=== PATIENT | male | born 1960 | race Caucasian/White ===

== ENCOUNTER 2017-12-24 11:14 | Inpatient (IN) ==
[2017-12-24] MEDS ORDERED: 0.9 % Sodium Chloride 1,000 ML IVC ONE (11:16)
[2017-12-24] MEDS ORDERED: Isovue-370 500 ML INFUS..BTL IV ONE (11:28)
[2017-12-24] MEDS ORDERED: Pantoprazole 80 MG in 0.9 % Sodium Chloride 50 ML IVPB ONE (11:30)
--- NOTE | 2017-12-24 11:30 | Emergency Department Note ---
Disposition Clinical Impression: GI bleed Qualifiers: GI bleed type/associated pathology: unspecified gastrointestinal hemorrhage type Qualified Code(s): K92.2 - Gastrointestinal hemorrhage, unspecified Disposition: Admitted As Inpatient Condition: Undetermined GI Bleed HPI - General Chief complaint: ED GI Bleed Stated complaint: GI bleed Time Seen by Provider: 12/24/17 11:15 Source: EMS Mode of arrival: EMS Limitations: no limitations Nursing Notes Reviewed: Yes Vital Signs Reviewed: Yes - History of Present Illness HPI Narrative: 57-year-old male history of chronic alcohol abuse who presents to the ER with a complaint of throwing up blood and bloody bowel movements. Reports symptoms started yesterday. He states he had what episode of dark blood in his vomit. He then had roughly half a dozen bloody bowel movements throughout the evening. He states they were both light and dark intermittently. He states this happened once before about a year ago. He had a colonoscopy 5 years ago that was normal. He is not on any antiplatelet or anticoagulation medications. He endorses some lower abdominal pain. No prior abdominal surgical history. No history of esophageal banding for varices. He was seen at the [facility] where they checked labs, rectal exam which was grossly positive for blood and transferred him here for further evaluation. Pt Subjective Complaint: coffee ground emesis, melena, gross hematochezia Onset (ago): day(s) Consistency: intermittent Improves with: nothing Worsens with: nothing Context: history of GI bleed, alcohol abuse Associated symptoms: Reports: abdominal pain, vomiting. Denies: nausea, fever Treatments Prior to Arrival: none - Related Data Home Medications Medication Instructions Recorded Confirmed Baclofen [Lioresal] 10 mg PO TID 12/24/17 12/24/17 Buprenorphine [Butrans] 10 mcg TD QWEEK 12/24/17 12/24/17 Cholecalciferol (D-3) [Vitamin D] 1,000 unit PO DAILY 12/24/17 12/24/17 DULoxetine [Cymbalta] 60 mg PO DAILY 12/24/17 12/24/17 Diclofenac Sodium [Voltaren] 2 gm TP QID 12/24/17 12/24/17 Folic Acid 1 mg PO DAILY 12/24/17 12/24/17 Gabapentin [Neurontin] 300 mg PO TID 12/24/17 12/24/17 Lisinopril-HCTZ 20-12.5 [Prinzide 2 tab PO DAILY 12/24/17 12/24/17 20-12.5] Melatonin [Melatin] 3 mg PO HS 12/24/17 12/24/17 Multivit-Min/FA/Lycopen/Lutein [A 1 tab PO DAILY 12/24/17 12/24/17 Thru Z Select Multivit Tab] Naproxen [Naprosyn] 500 mg PO BID 12/24/17 12/24/17 Claridge-3/Dha/Epa/Fish Oil [Fish Oil 1 cap PO BID 12/24/17 12/24/17 1,000 mg Softgel] Sennosides [Senna] 17.2 mg PO DAILY PRN 12/24/17 12/24/17 Sildenafil Citrate [Viagra] 50 mg PO DAILY PRN 12/24/17 12/24/17 Tramadol HCl [Ultram] 50 mg PO TID PRN 12/24/17 12/24/17 Trazodone HCl 100 mg PO HS 12/24/17 12/24/17 Allergies Allergy/AdvReac Type Severity Reaction Status Date / Time No Known Allergies Allergy Verified 06/29/16 01:59 All systems ED: reviewed and negative except as stated. Constitutional: Denies: fever Gastrointestinal: Reports: abdominal pain, vomiting, hematemesis, melena, hematochezia. Denies: nausea, diarrhea Past Medical History - Past Medical History Attestation: Yes The following information was validated with the patient. Source: patient Medical history: Reports: arthritis, hypertension Psychiatric history: Reports: no psych history - Social History Smoking Status: Current every day smoker Smokeless Tobacco Status: No Alcohol use: Reports: heavy Drug use: Reports: marijuana Physical Exam - General Limitations: no limitations General appearance: alert, in no apparent distress - Head Head exam: atraumatic, normocephalic - Eye Eye exam: Present: normal appearance - ENT ENT exam: normal exam - Neck Neck exam: Present: normal inspection - Chest Chest inspection: Present: normal inspection, symmetric chest wall rise - Respiratory Respiratory exam: Present: normal lung sounds bilaterally - Cardiovascular Cardiovascular exam: Present: regular rate, normal rhythm, normal heart sounds - Abdominal Exam Abdominal exam: Present: soft, tenderness (Moderate lower abdominal tenderness) . Absent: distention, guarding, rigidity - Extremities Exam Extremities exam: Present: normal inspection, full ROM - Expanded Upper Extremity Exam Shoulder exam: Present: normal inspection, full ROM Arm exam: Present: normal inspection, full ROM Elbow exam: Present: normal inspection, full ROM Forearm/Wrist exam: Present: normal inspection, full ROM Hand exam: Present: normal inspection, full ROM - Expanded Lower Extremity Exam Hip/Pelvis exam: Present: normal inspection, full ROM Upper leg exam: Present: normal inspection, full ROM Knee exam: Present: normal inspection, full ROM Lower leg exam: Present: normal inspection, full ROM Ankle exam: Present: normal inspection, full ROM Foot/toe exam: Present: normal inspection, full ROM - Skin Skin exam: Present: warm, dry Course Course Narrative: Patient seen and examined. Vital signs reviewed. Plan for CT imaging, labs, type and screen, Protonix bolus and drip, discussion with endoscopy and admission for further management. - Consultations Consultation #1: I spoke with the on-call endoscopist Dr. Oneill. Discussed the patient's history exam labs and imaging as well as interventions. He asked if there was evidence of cirrhosis and his report. There is no mention of cirrhosis on the radiology read however they do, with duodenitis. Agrees to see the patient in consultation. Consultation #2: I spoke again with the on-call endoscopist at the request of the hospitalist. He states that he does not do banding however he reviewed the CT scan and does not see esophageal varices no more duodenitis. I was calling on behalf of the hospitalist to assure that he felt comfortable managing the patient endoscopically. Vital Signs Temperature 98.8 F 12/24/17 11:19 Pulse Rate 88 12/24/17 11:19 Respiratory Rate 15 12/24/17 11:19 Blood Pressure 148/75 12/24/17 11:19 O2 Sat by Pulse Oximetry 100 12/24/17 11:19 Temperature 99.3 F 12/24/17 15:36 Pulse Rate 87 12/24/17 15:36 Respiratory Rate 16 12/24/17 15:36 Blood Pressure 166/71 12/24/17 15:36 O2 Sat by Pulse Oximetry 96 12/24/17 15:36 Oxygen Delivery Oxygen Delivery Room Air GI Bleed - MDM Narrative Medical decision making narrative: 57-year-old male with upper and lower GI bleed. History of alcohol abuse. Noted to have a hemoglobin of 9.7 today. INR and platelets normal. Hemodynamically stable. CT with evidence of duodenitis. Endoscopy consulted. Admitted to the hospitalist service in stable condition. - Lab Data Lab results reviewed: Yes I reviewed the patient's lab results. Result diagrams: 12/24/17 17:02 12/24/17 11:50 Lab Results 12/24/17 12/24/17 12/24/17 Range/Units 11:50 11:50 11:50 WBC 13.2 H (4.3-11.1) K/mcL RBC 2.77 L (4.19-5.50) M/mcL Hgb 9.7 L (12.9-16.9) g/dL Hct 27.1 L (37.5-50.1) % MCV 97.8 (83.0-100.0) fL MCH 35.0 H (28.0-33.3) pg MCHC 35.8 H (31.6-35.5) g/dL RDW 13.5 (11.5-14.5) % Plt Count 165 (140-400) K/mcL MPV 9.6 (9.4-12.4) fL Immature Gran % 0.4 (0-4) % Seg Neutrophils % 65.5 % Lymphocytes % 21.2 % Monocytes % 12.5 % Eosinophils % 0.1 % Basophils % 0.3 % Neutrophils # 8.6 (1.6-8.9) K/mcL Lymphocytes # 2.8 (0.6-4.6) K/mcL Monocytes # 1.7 H (0.0-1.3) K/mcL Eosinophils # 0.0 (0.0-0.6) K/mcL Basophils # 0.0 (0.0-0.2) K/mcL Nucleated RBCs/100 WBC 0.3 H (0) /100 WBC PT 13.0 H (9.4-12.1) Seconds INR 1.2 APTT 27.9 (26.0-36.0) Seconds Sodium 134 L (136-145) mEq/L Potassium 4.4 (3.5-5.1) mEq/L Chloride 98 (98-107) mEq/L Carbon Dioxide 28 (23-29) mEq/L BUN 63 H (6-20) mg/dL Creatinine 1.23 (0.70-1.30) mg/dL Est GFR ( Amer) > 60 (> 60) Est GFR (Non-Af Amer) > 60 (> 60) BUN/Creatinine Ratio 51 H (6-26) Glucose 131 H (70-105) mg/dL Calculated Osmolality 298 (280-300) Calcium 9.4 (8.6-10.3) mg/dL Total Bilirubin 0.7 (0.3-1.0) mg/dL AST 38 (13-39) Units/L ALT 34 (7-52) Units/L Alkaline Phosphatase 46 (34-104) Units/L Troponin I < 0.03 (< 0.04) ng/mL Serum Total Protein 6.6 (6.4-8.9) g/dL Albumin 3.7 (3.5-5.7) g/dL Globulin 2.9 (2.4-3.5) g/dL Albumin/Globulin Ratio 1.3 (1.1-2.2) Amylase 44 (29-103) Units/L Lipase 10 L (11-82) Units/L Blood Type Antibody Screen 12/24/17 Range/Units 11:50 WBC (4.3-11.1) K/mcL RBC (4.19-5.50) M/mcL Hgb (12.9-16.9) g/dL Hct (37.5-50.1) % MCV (83.0-100.0) fL MCH (28.0-33.3) pg MCHC (31.6-35.5) g/dL RDW (11.5-14.5) % Plt Count (140-400) K/mcL MPV (9.4-12.4) fL Immature Gran % (0-4) % Seg Neutrophils % % Lymphocytes % % Monocytes % % Eosinophils % % Basophils % % Neutrophils # (1.6-8.9) K/mcL Lymphocytes # (0.6-4.6) K/mcL Monocytes # (0.0-1.3) K/mcL Eosinophils # (0.0-0.6) K/mcL Basophils # (0.0-0.2) K/mcL Nucleated RBCs/100 WBC (0) /100 WBC PT (9.4-12.1) Seconds INR APTT (26.0-36.0) Seconds Sodium (136-145) mEq/L Potassium (3.5-5.1) mEq/L Chloride (98-107) mEq/L Carbon Dioxide (23-29) mEq/L BUN (6-20) mg/dL Creatinine (0.70-1.30) mg/dL Est GFR ( Amer) (> 60) Est GFR (Non-Af Amer) (> 60) BUN/Creatinine Ratio (6-26) Glucose (70-105) mg/dL Calculated Osmolality (280-300) Calcium (8.6-10.3) mg/dL Total Bilirubin (0.3-1.0) mg/dL AST (13-39) Units/L ALT (7-52) Units/L Alkaline Phosphatase (34-104) Units/L Troponin I (< 0.04) ng/mL Serum Total Protein (6.4-8.9) g/dL Albumin (3.5-5.7) g/dL Globulin (2.4-3.5) g/dL Albumin/Globulin Ratio (1.1-2.2) Amylase (29-103) Units/L Lipase (11-82) Units/L Blood Type O POSITIVE Antibody Screen NEGATIVE - Radiology Data Radiology results reviewed: Yes I reviewed the patient's radiology results. Abdomen/Pelvis CT 12/24/17 11:28 IMPRESSION: Suspect nonspecific duodenitis with reactive upper abdominal lymph nodes D/ / Mick Curtis MD / Mick Curtis MD Interpreting Provider: Mick Curtis MD - EKG Data EKG attestation: Yes I reviewed and interpreted this EKG. EKG results narrative: EKG demonstrates sinus rhythm with rate of 87 bpm. Normal axis. Normal intervals. Normal R-wave progression. No gross ST elevations or depressions. No acute ischemic findings. Critical Care Time Critical Care Time: Yes Total Critical Care Time: 35 Attestation: Critical care time 35 minutes managing patient's Shibley. S.B.A.R. - S.B.A.R. Situation: Demographics, MOA Background: Presenting Complaint, Relevant PMH, Meds, & Allergies Assessment: Vital Signs, Course and respsone to treatment, Exam Concerns, Patient/Family Expectation, Pertinant Lab Results Recommendation: Barrier(s) to disposition, Recommendation based on pending studies, treatments, or consults S.B.A.R. Report Given to: Dr. Lamb Attestation Statement - Attestation Attestation: Patient was seen with resident physician. I reviewed the history, physical, assessment and plan, and agree with the findings. I also personally evaluated this patient and had [id number] time with this patient. 57-year-old male presents emergency department GI bleed. Patient has a history of same. Patient acknowledges that he is an alcoholic. Patient states that he has had coffee-ground emesis as well as dark melena stools for the last couple of days. He says it was really bad yesterday could not stop throwing up. He said some abdominal cramping but no other abdominal pain. No fevers or chills. No chest pain or shortness of breath. Review systems as above remainder negative. Physical exam vital signs were stable. ENT is unremarkable. Heart regular rhythm and rate. Lungs clear. Abdomen soft nontender. Extremities unremarkable. Neurologically intact. Skin no rashes. Psych anxious. ED course patient will be started with 2 large-bore IVs. Protonix drip. Full lab testing. And then we will contact endoscopy as well as hospitalist service for admission. His hemoglobin has dropped since his last tests which was 14 today was 9. He did not receive blood products while in the emergency department. He did not have episodes of emesis while here. He was admitted to the hospitalist service with endoscopy consultation. Hemodynamically his vital signs remained stable at time of transfer to the hospital area Critical care time 35 minutes.
[2017-12-24 12:06] LABS: Basophils % 0.3 %; Eosinophils % 0.1 %; Hematocrit 27.1 % (37.5-50.1); Hemoglobin 9.7 g/dL (12.9-16.9); Immature Granulocytes % 0.4 % (0-4); Lymphocytes # 2.8 K/mcL (0.6-4.6); Lymphocytes % 21.2 %; Mean Corpuscular HGB Conc 35.8 g/dL (31.6-35.5); Mean Corpuscular Volume 97.8 fL (83.0-100.0); Mean Platelet Volume 9.6 fL (9.4-12.4); Monocytes # 1.7 K/mcL (0.0-1.3); Monocytes % 12.5 %; Neutrophils # 8.6 K/mcL (1.6-8.9); Nucleated Red Blood Cells 0.3 /100 WBC (0); Platelet Count 165 K/mcL (140-400); Red Blood Count 2.77 M/mcL (4.19-5.50); Red Cell Distribution Width 13.5 % (11.5-14.5); Segmented Neutrophils % 65.5 %
[2017-12-24] MEDS: Pantoprazole 40 MG in 0.9 % Sodium Chloride Mini Bag 100 ML IVC SCH ×3 (12:08→23:50)
[2017-12-24 12:13] LABS: INR 1.2
[2017-12-24 12:16] LABS: Activated Partial Thrombo Time 27.9 Seconds (26.0-36.0)
[2017-12-24 12:23] LABS: Troponin I < 0.03 ng/mL (< 0.04)
[2017-12-24 12:24] LABS: Alanine Aminotransferase 34 Units/L (7-52); Albumin 3.7 g/dL (3.5-5.7); Albumin/Globulin Ratio 1.3 (1.1-2.2); Alkaline Phosphatase 46 Units/L (34-104); Aspartate Amino Transferase 38 Units/L (13-39); BUN/Creatinine Ratio 51 (6-26); Bilirubin,Total 0.7 mg/dL (0.3-1.0); Blood Urea Nitrogen 63 mg/dL (6-20); Calcium 9.4 mg/dL (8.6-10.3); Carbon Dioxide 28 mEq/L (23-29); Chloride 98 mEq/L (98-107); Globulin 2.9 g/dL (2.4-3.5); Glucose 131 mg/dL (70-105); Osmolality,Calculated 298 (280-300); Potassium 4.4 mEq/L (3.5-5.1); Sodium 134 mEq/L (136-145); Total Protein 6.6 g/dL (6.4-8.9); eGFR For Non-African Americans > 60 (> 60)
[2017-12-24] MEDS ORDERED: Naloxone 0.4 MG/ML INJ IVP PRN (14:40)
--- NOTE | 2017-12-24 14:52 | General Surgery Consult Note ---
<Jason Aiken W - Last Filed: 12/24/17 15:41> Date of Encounter: 12/24/17 Time of Encounter: 14:49 Assessment and Plan (1) GI bleed Current Visit: Yes Status: Acute Patient has had multiple episodes of coffee-ground emesis and melena CT scan (impression below) showed duodenitis Appears hemodynamically stable at this time EGD recommended within the next 24-72 hours IV Protonix, Carafate, and Zosyn recommended IV fluids transfusions if needed per primary Follow H&H and labs IMPRESSION: Suspect nonspecific duodenitis with reactive upper abdominal lymph nodes History of Present Illness Consult date: 12/24/17 Reason for consult: other (GI bleed) Requesting physician: Jagdish Claire History of present illness: Mr. Alvarez is a 57-year-old male with a past medical history of ETOH abuse, low back pain (on Naproxen) who presents to the emergency department for coffee- ground emesis and melena. Patient states this started yesterday around noon when he suddenly had the urge to vomit. He said he had a large vomit that came on very quickly It was mostly dark blood stated it looked like coffee grounds. 15 minutes after this he said he had the urge to go to the bathroom. He had a large bowel movement code mostly dark blood but had some bright red blood as well. Since then he has vomited 6-8 times and had bloody bowel movements about 6 times. After this he decided to go to the emergency room. States he has abdominal pain in his lower quadrants the pain does not radiate and is constant and dull. He is not taken anything to make this better. Patient states he felt lightheaded and slightly weak but did not pass out. Patient on several medications including lisinopril hydrochlorothiazide, gabapentin, naproxen 500 mg twice a day, and pain medications. Colonoscopy 5 years ago and was normal. Never experienced this before. No abdominal surgical history. Past Med Surg Social Fam HX - Past Medical History Medical history: arthritis, hypertension Additional medical history: ETOH abuse Psychiatric history: no psych history - Past Surgical History Additional surgical history: knee surgery - Social History Smoking Status: Current every day smoker Smokeless Tobacco Status: No Alcohol use: heavy Drug use: marijuana Medications and Allergies Baclofen [Lioresal] 10 mg PO TID 12/24/17 [History] Buprenorphine [Butrans] 10 mcg TD QWEEK 12/24/17 [History] Cholecalciferol (D-3) [Vitamin D] 1,000 unit PO DAILY 12/24/17 [History] DULoxetine [Cymbalta] 60 mg PO DAILY 12/24/17 [History] Diclofenac Sodium [Voltaren] 2 gm TP QID 12/24/17 [History] Folic Acid 1 mg PO DAILY 12/24/17 [History] Gabapentin [Neurontin] 300 mg PO TID 12/24/17 [History] Lisinopril-HCTZ 20-12.5 [Prinzide 20-12.5] 2 tab PO DAILY 12/24/17 [History] Melatonin [Melatin] 3 mg PO HS 12/24/17 [History] Multivit-Min/FA/Lycopen/Lutein [A Thru Z Select Multivit Tab] 1 tab PO DAILY [History] Naproxen [Naprosyn] 500 mg PO BID 12/24/17 [History] Nash-3/Dha/Epa/Fish Oil [Fish Oil 1,000 mg Softgel] 1 cap PO BID 12/24/17 [ History] Sennosides [Senna] 17.2 mg PO DAILY PRN 12/24/17 [History] Sildenafil Citrate [Viagra] 50 mg PO DAILY PRN 12/24/17 [History] Tramadol HCl [Ultram] 50 mg PO TID PRN 12/24/17 [History] Trazodone HCl 100 mg PO HS 12/24/17 [History] 3 Allergy/AdvReac Type Severity Reaction Status Date / Time No Known Allergies Allergy Verified 06/29/16 01:59 Review of Systems All systems PM: The remainder of the systems were reviewed and are negative - Constitutional fatigue, weakness, no increased appetite - EENT Nose, mouth and throat: dizziness - Cardiovascular no chest pain - Respiratory hemoptysis, no dyspnea on exertion - Gastrointestinal as per HPI - Musculoskeletal arthralgias, back pain, stiffness - Neurological no headache(s), no lack of coordination, no syncope General Surgery Exam Initial Vital Signs Temp Pulse Resp BP Pulse Ox 98.8 F 88 15 148/75 100 12/24/17 11:19 12/24/17 11:19 12/24/17 11:19 12/24/17 11:19 12/24/17 11:19 - General physical appearance well developed, well nourished, moderate distress, other (jittery on exam, tremor like) - Eyes PERRL, normal ocular movement - ENT atraumatic, normocephalic, CN 2-12 grossly intact - Respiratory normal expansion, normal respiratory effort, clear to auscultation - Cardiovascular Cardiovascular exam: Present: RRR, no murmurs/rubs/gallops - Abdomen Abdomen general surgery: Present: bowel sounds present, soft Abdominal Tenderness: Present: epigastic, RLQ, LLQ - Integumentary Integumentary general surgery: Present: warm and dry, no abnormal pigmentation - Neurologic Present: CN 2-12 grossly intact, normal coordination, normal sensation - Musculoskeletal Present: normal posture - Psychiatric Psychiatric general surgery: Present: appropriate, speech is normal, memory intact Exam Initial Vital Signs Temp Pulse Resp BP Pulse Ox 98.8 F 88 15 148/75 100 12/24/17 11:19 12/24/17 11:19 12/24/17 11:19 12/24/17 11:19 12/24/17 11:19 Results - Labs 12/24/17 11:50 12/24/17 11:50 Abnormal lab results WBC 13.2 K/mcL (4.3-11.1) H 12/24/17 11:50 RBC 2.77 M/mcL (4.19-5.50) L 12/24/17 11:50 Hgb 9.7 g/dL (12.9-16.9) L 12/24/17 11:50 Hct 27.1 % (37.5-50.1) L 12/24/17 11:50 MCH 35.0 pg (28.0-33.3) H 12/24/17 11:50 MCHC 35.8 g/dL (31.6-35.5) H 12/24/17 11:50 Monocytes # 1.7 K/mcL (0.0-1.3) H 12/24/17 11:50 Nucleated RBCs/100 WBC 0.3 /100 WBC (0) H 12/24/17 11:50 PT 13.0 Seconds (9.4-12.1) H 12/24/17 11:50 Sodium 134 mEq/L (136-145) L 12/24/17 11:50 BUN 63 mg/dL (6-20) H 12/24/17 11:50 BUN/Creatinine Ratio 51 (6-26) H 12/24/17 11:50 Glucose 131 mg/dL (70-105) H 12/24/17 11:50 All other labs normal. Consult Discharge Plan - Plan [facility] Care Provider[facility] - <Nelson Oneill - Last Filed: 12/24/17 17:55> Date of Encounter: 12/24/17 Review of Systems All systems PM: The remainder of the systems were reviewed and are negative General Surgery Exam Initial Vital Signs Temp Pulse Resp BP Pulse Ox 98.8 F 88 15 148/75 100 12/24/17 11:19 12/24/17 11:19 12/24/17 11:19 12/24/17 11:19 12/24/17 11:19 Exam Initial Vital Signs Temp Pulse Resp BP Pulse Ox 98.8 F 88 15 148/75 100 12/24/17 11:19 12/24/17 11:19 12/24/17 11:19 12/24/17 11:19 12/24/17 11:19 Results - Labs 12/24/17 17:02 12/24/17 11:50 Abnormal lab results WBC 13.2 K/mcL (4.3-11.1) H 12/24/17 11:50 RBC 2.77 M/mcL (4.19-5.50) L 12/24/17 11:50 Hgb 9.0 g/dL (12.9-16.9) L 12/24/17 17:02 Hct 25.5 % (37.5-50.1) L 12/24/17 17:02 MCH 35.0 pg (28.0-33.3) H 12/24/17 11:50 MCHC 35.8 g/dL (31.6-35.5) H 12/24/17 11:50 Monocytes # 1.7 K/mcL (0.0-1.3) H 12/24/17 11:50 Nucleated RBCs/100 WBC 0.3 /100 WBC (0) H 12/24/17 11:50 PT 13.0 Seconds (9.4-12.1) H 12/24/17 11:50 Sodium 134 mEq/L (136-145) L 12/24/17 11:50 BUN 63 mg/dL (6-20) H 12/24/17 11:50 BUN/Creatinine Ratio 51 (6-26) H 12/24/17 11:50 Glucose 131 mg/dL (70-105) H 12/24/17 11:50 Lipase 10 Units/L (11-82) L 12/24/17 11:50 All other labs normal. - Attending Attestation I examined this patient and my medical decision-making was reviewed with the Resident Physician. I agree with the documented findings, disposition and treatment plan as described except to the extent set forth below. I reviewed the above assessment and evaluation and agree with the above plan. Patient started having episodes of a metastasis with coffee-ground emesis and dark stool. He stated that he has been having some lower abdominal pain symptoms and has never had hematemesis in the past. His previous colonoscopy but denies ever having had an EGD. He has been taking Naprosyn for pain at least twice a day. He admits to alcohol history as well. I personally reviewed the CT scan images and report which shows evidence of duodenitis. His upper GI bleed is likely secondary to duodenitis versus an ulcer. Agree with antibiotics and starting of IV Protonix and Carafate. Agree with checking H&H. We will follow with you.
[2017-12-24] MEDS ORDERED: *HR* LORazepam 2 MG/ML VIAL IVP PRN ×3 (14:53)
--- NOTE | 2017-12-24 14:58 | Internal Med History&Physical ---
<Elva Roegrs Thomas - Last Filed: 12/24/17 16:03> Date of Encounter: 12/24/17 Time of Encounter: 14:57 Internal Medicine - H&P: HPI Chief complaint: GI bleed Admitted From: Hospital to Hospital Transfer (From [place]) Plans for Post Hospital Care: Home History of present illness: Mr. Santamaria is a 57 year old male with history of alcohol abuse, GI bleeding, arthritis, HTN, and daily smoker. Here from the [place] with reports of coffee ground emesis, melena. He reported the stool color as bright red to me. The patient indicated that he has a history of GI bleed about 1 year ago. He also indicated that he had a colonoscopy about 5 years ago. The patient hgb is currently 9.7, baseline is around 14. The patient bun elevated at 63. The creat is 1.23. The patient was started o a protonix drip after results of abdominal CT : Suspect nonspecific duodenitis with reactive upper abdominal lymph nodes. Surgery was consulted per the ED. Plan is to scope the patient tomorrow. History of alcohol abuse. He indicated that he typically drinks 4-5 beers per day, his last drink was this past . Patient appeared very anxious and asked for a drink of water 3 times while I was in the room. Patient is currently npo. On CIWA scale. He could start withdrawal, as it has been 3 days since consuming alcohol. Patient denied chest pain however states he has shortness of breath at times,likely related to the anemia. O2 sat is 96% at this time. Past Med Surg Social Fam HX - Past Medical History Medical history: arthritis, hypertension Additional medical history: ETOH abuse Psychiatric history: no psych history - Past Surgical History Additional surgical history: knee surgery - Social History Smoking Status: Current every day smoker Smokeless Tobacco Status: No Alcohol use: heavy Drug use: marijuana Internal Medicine - H&P: Meds Baclofen [Lioresal] 10 mg PO TID 12/24/17 [History] Buprenorphine [Butrans] 10 mcg TD QWEEK 12/24/17 [History] Cholecalciferol (D-3) [Vitamin D] 1,000 unit PO DAILY 12/24/17 [History] DULoxetine [Cymbalta] 60 mg PO DAILY 12/24/17 [History] Diclofenac Sodium [Voltaren] 2 gm TP QID 12/24/17 [History] Folic Acid 1 mg PO DAILY 12/24/17 [History] Gabapentin [Neurontin] 300 mg PO TID 12/24/17 [History] Lisinopril-HCTZ 20-12.5 [Prinzide 20-12.5] 2 tab PO DAILY 12/24/17 [History] Melatonin [Melatin] 3 mg PO HS 12/24/17 [History] Multivit-Min/FA/Lycopen/Lutein [A Thru Z Select Multivit Tab] 1 tab PO DAILY [History] Naproxen [Naprosyn] 500 mg PO BID 12/24/17 [History] [place]-3/Dha/Epa/Fish Oil [Fish Oil 1,000 mg Softgel] 1 cap PO BID 12/24/17 [ History] Sennosides [Senna] 17.2 mg PO DAILY PRN 12/24/17 [History] Sildenafil Citrate [Viagra] 50 mg PO DAILY PRN 12/24/17 [History] Tramadol HCl [Ultram] 50 mg PO TID PRN 12/24/17 [History] Trazodone HCl 100 mg PO HS 12/24/17 [History] 3 Allergy/AdvReac Type Severity Reaction Status Date / Time No Known Allergies Allergy Verified 06/29/16 01:59 All Systems PM: A 10-system review of systems was performed and is negative for pertinent findings except as documented above in the HPI. - Constitutional Constitutional: no chills, no fever(s), no night sweats - EENT Eyes: no change in vision, no discharge, no pain, no photophobia Ears: no ear discharge, no ear pain, no tinnitus Nose, mouth and throat: no dysphagia, no nasal discharge, no neck pain, no sore throat - Cardiovascular Cardiovascular ROS IM: no chest pain, no diaphoresis, no dyspnea, no lightheadedness, no palpitations, no syncope - Respiratory Respiratory: no cough, no dyspnea, no wheezing, no excessive phlegm production - Gastrointestinal Gastrointestinal: abdominal pain (Associated with nausea), hematemesis, hematochezia, melena, nausea, no diarrhea, no vomiting - Musculoskeletal Musculoskeletal ROS IM: no numbness, no tingling - Integumentary Integumentary IM: no rash, no unusual bruising - Neurological Neurological ROS: no confusion, no convulsions, no focal weakness, no numbness, no tingling, no tremor(s) - Psychiatric Psychiatric: anxiety, other (Tremors, likely related to alcohol withdrawl ) - Hematologic/Lymphatic Hematologic/Lymphatic: no easy bruising - Constitutional Vitals: Temp Pulse Resp BP Pulse Ox 98.8 F 80 15 128/68 97 12/24/17 11:19 12/24/17 13:28 12/24/17 11:19 12/24/17 13:28 12/24/17 13:28 General appearance: Present: A&O X 3, answers questions appropriately - Head Head exam: Present: atraumatic, normocephalic - Eye Eye exam: Present: PERRL, conjuntiva pink, sclera anicteric Pupils: Present: PERRL - Neck Neck exam general surgery: Present: supple, trachea midline. Absent: lymphadenopathy - Respiratory Respiratory exam: Present: rhonchi (faint, ststes he currently smokes about 10 cigarettes per day. ). Absent: accessory muscle use, rales, wheezes - Cardiovascular Cardiovascular exam: Present: RRR, +S1, +S2. Absent: diastolic murmur, gallop, rubs, systolic murmur - GI/Abdominal GI/Abdominal exam: Present: normal bowel sounds, soft, no peritoneal signs. Absent: distended, tenderness - Extremities Exam Extremities exam: Present: warm, radial pulses palpable and symmetrical. Absent : calf tenderness, cyanotic, pedal edema - Neurological Exam Neurological exam: Present: CN II-XII intact, oriented X3, no focal deficits. Absent: pronater drift, facial droop, speech deficit - Skin Skin exam: Present: dry, intact Internal Med - H&P Results - Labs CBC & Chem 7: 12/24/17 11:50 12/24/17 11:50 - Assessment and plan (1) GI bleed Current Visit: Yes Status: Acute Assessment and plan: Protonix drip Surgery consulted H and H q 6h Type and screen, give PBRC's if hgb less than 7 NPO except ice chips Qualifiers: GI bleed type/associated pathology: unspecified gastrointestinal hemorrhage type Qualified Code(s): K92.2 - Gastrointestinal hemorrhage, unspecified (2) Alcohol dependence Current Visit: Yes Status: Acute Assessment and plan: CIWA Scale with lorazepam iv coverage Social service consult Cardiac monitoring Qualifiers: Substance use status: unspecified alcohol-induced disorder Qualified Code(s ): F10.29 - Alcohol dependence with unspecified alcohol-induced disorder (3) HTN (hypertension) Current Visit: Yes Status: Acute Assessment and plan: Bp is elevated/uncontrolled. Likely due to discomfort of nausea, and vomiting. Will continue home medications lisionpril/HCTZ. Qualifiers: Hypertension type: essential hypertension Qualified Code(s): I10 - Essential (primary) hypertension - Time Spent With Patient Total time spent is greater than 50% in coordination of care (as documented) at patient's floor/unit and/or counseling patient: 25 - 35 minutes <Brayan Lamb - Last Filed: 12/24/17 16:20> Date of Encounter: 12/24/17 Internal Medicine - H&P: HPI History of present illness: Mr. Santamaria is a 57 year old male All Systems PM: A 10-system review of systems was performed and is negative for pertinent findings except as documented above in the HPI. - Constitutional Vitals: Temp Pulse Resp BP Pulse Ox 99.3 F 87 16 166/71 96 12/24/17 15:36 12/24/17 15:36 12/24/17 15:36 12/24/17 15:36 12/24/17 15:36 Internal Med - H&P Results - Labs CBC & Chem 7: 12/24/17 11:50 12/24/17 11:50 - Attending Attestation I have seen and examined the patient with Elva Rogers and agree with his/her assessment and plan. 57-year-old male with history of alcohol abuse but no cirrhosis presented to the ED with a concern for upper bleeding GI tract. Hemoglobin was 9.7 and it was 14.4 about a year and a half ago. Otherwise he was afebrile and hemodynamically stable. Exam is unremarkable without significant epigastric tenderness. BMP which showed elevated BUN to creatinine ratio was also suggestive of upper BGIT. No coagulopathy or thrombocytopenia. CT scan finding suggested possible duodenitis as a cause. He was started on IV fluids and IV Protonix. He will be nothing by mouth, and will be for scope tomorrow per surgery. Last drink was on , will place on CIWA protocol to monitor for alcohol withdrawal. Brayan Lamb MD - Time Spent With Patient Total time spent is greater than 50% in coordination of care (as documented) at patient's floor/unit and/or counseling patient:
[2017-12-24] MEDS ORDERED: Ondansetron 4 MG/2 ML VIAL ONE (14:59)
[2017-12-24] MEDS ORDERED: Propofol 500 MG/50 ML INFUS..BTL ONE (15:07)
[2017-12-24 15:22] LABS: Amylase 44 Units/L (29-103); Lipase 10 Units/L (11-82)
[2017-12-24] MEDS ORDERED: *HR* LORazepam 2 MG/ML VIAL IVP ONE (15:44)
[2017-12-24] MEDS ORDERED: traMADol 50 MG TABLET PO PRN (15:53)
[2017-12-24] MEDS: 0.9 % Sodium Chloride 1,000 ML IVC SCH (16:57)
[2017-12-24 17:11] LABS: Hematocrit 25.5 % (37.5-50.1)
[2017-12-24] MEDS ORDERED: Thiamine (B-1) 100 MG, Folic Acid 1 MG, MVI, adult with vitamin K 10 ML in 0.9 % Sodi... IVPB SCH (18:00)
--- NOTE | 2017-12-24 18:00 | General Surgery Consult Note ---
Date of Encounter: 12/25/17 Time of Encounter: 17:56 Assessment and Plan (1) UGIB (upper gastrointestinal bleed) Current Visit: Yes Status: Acute History of Present Illness Consult date: 12/24/17 Reason for consult: other Requesting physician: Jagdish Claire History of present illness: Patient is a 57-year-old male with a past medical history significant for alcohol use who states that couple of days ago he started to have symptoms of Past Med Surg Social Fam HX - Past Medical History Medical history: arthritis, hypertension Additional medical history: ETOH abuse Psychiatric history: no psych history - Past Surgical History Additional surgical history: knee surgery - Social History Smoking Status: Current every day smoker Smokeless Tobacco Status: No Alcohol use: heavy Drug use: marijuana Medications and Allergies Baclofen [Lioresal] 10 mg PO TID 12/24/17 [History] Buprenorphine [Butrans] 10 mcg TD QWEEK 12/24/17 [History] Cholecalciferol (D-3) [Vitamin D] 1,000 unit PO DAILY 12/24/17 [History] DULoxetine [Cymbalta] 60 mg PO DAILY 12/24/17 [History] Diclofenac Sodium [Voltaren] 2 gm TP QID 12/24/17 [History] Folic Acid 1 mg PO DAILY 12/24/17 [History] Gabapentin [Neurontin] 300 mg PO TID 12/24/17 [History] Lisinopril-HCTZ 20-12.5 [Prinzide 20-12.5] 2 tab PO DAILY 12/24/17 [History] Melatonin [Melatin] 3 mg PO HS 12/24/17 [History] Multivit-Min/FA/Lycopen/Lutein [A Thru Z Select Multivit Tab] 1 tab PO DAILY [History] Naproxen [Naprosyn] 500 mg PO BID 12/24/17 [History] [place]-3/Dha/Epa/Fish Oil [Fish Oil 1,000 mg Softgel] 1 cap PO BID 12/24/17 [ History] Sennosides [Senna] 17.2 mg PO DAILY PRN 12/24/17 [History] Sildenafil Citrate [Viagra] 50 mg PO DAILY PRN 12/24/17 [History] Tramadol HCl [Ultram] 50 mg PO TID PRN 12/24/17 [History] Trazodone HCl 100 mg PO HS 12/24/17 [History] 3 Allergy/AdvReac Type Severity Reaction Status Date / Time No Known Allergies Allergy Verified 06/29/16 01:59 Review of Systems ROS unobtainable: due to endotracheal tube All systems PM: reviewed and no additional remarkable complaints except as stated All systems PM: The remainder of the systems were reviewed and are negative General Surgery Exam Initial Vital Signs Temp Pulse Resp BP Pulse Ox 98.8 F 88 15 148/75 100 12/24/17 11:19 12/24/17 11:19 12/24/17 11:19 12/24/17 11:19 12/24/17 11:19 - Eyes PERRL - Respiratory normal expansion, normal respiratory effort, other - Cardiovascular Cardiovascular exam: Present: RRR, no murmurs/rubs/gallops - Abdomen Abdomen general surgery: Present: bowel sounds present (scant), soft, tender ( Mild to moderate right upper quadrant and epigastric abdominal pain to palpation ) - Neurologic Present: CN 2-12 grossly intact - Musculoskeletal Present: other (No clubbing, cyanosis, or edema) - Psychiatric Psychiatric general surgery: Present: A&Ox3 Exam Initial Vital Signs Temp Pulse Resp BP Pulse Ox 98.8 F 88 15 148/75 100 12/24/17 11:19 12/24/17 11:19 12/24/17 11:19 12/24/17 11:19 12/24/17 11:19 Results - Labs 12/25/17 04:51 12/25/17 04:51 Abnormal lab results WBC 13.2 K/mcL (4.3-11.1) H 12/24/17 11:50 RBC 2.77 M/mcL (4.19-5.50) L 12/24/17 11:50 Hgb 9.0 g/dL (12.9-16.9) L 12/24/17 17:02 Hct 25.5 % (37.5-50.1) L 12/24/17 17:02 MCH 35.0 pg (28.0-33.3) H 12/24/17 11:50 MCHC 35.8 g/dL (31.6-35.5) H 12/24/17 11:50 Monocytes # 1.7 K/mcL (0.0-1.3) H 12/24/17 11:50 Nucleated RBCs/100 WBC 0.3 /100 WBC (0) H 12/24/17 11:50 PT 13.0 Seconds (9.4-12.1) H 12/24/17 11:50 Sodium 134 mEq/L (136-145) L 12/24/17 11:50 BUN 63 mg/dL (6-20) H 12/24/17 11:50 BUN/Creatinine Ratio 51 (6-26) H 12/24/17 11:50 Glucose 131 mg/dL (70-105) H 12/24/17 11:50 Lipase 10 Units/L (11-82) L 12/24/17 11:50 All other labs normal. - Imaging CT scan - abdomen: report reviewed, image reviewed (Noted signs of inflammation at the level of the duodenal bulb. No free air or free fluid.) Consult Discharge Plan - Plan [facility] Care Provider[facility] -
[2017-12-24] MEDS ORDERED: Gabapentin 300 MG CAPSULE PO SCH (21:00)
[2017-12-24] MEDS ORDERED: Baclofen 10 MG TABLET PO SCH (21:00)
[2017-12-24] MEDS ORDERED: Melatonin 3 MG TABLET PO SCH (21:00)
[2017-12-24] MEDS ORDERED: traZODone 50 MG TABLET PO SCH (21:00)
[2017-12-24 23:03] LABS: Hematocrit 21.4 % (37.5-50.1)
[2017-12-24 23:04] LABS: Hemoglobin 7.4 g/dL (12.9-16.9)
[2017-12-25] MEDS: Pantoprazole 40 MG in 0.9 % Sodium Chloride Mini Bag 100 ML IVC SCH (03:20)
[2017-12-25 05:27] LABS: Basophils % 0.4 %; Eosinophils # 0.3 K/mcL (0.0-0.6); Eosinophils % 3.2 %; Hematocrit 22.3 % (37.5-50.1); Hemoglobin 7.7 g/dL (12.9-16.9); Immature Granulocytes % 0.6 % (0-4); Lymphocytes # 3.4 K/mcL (0.6-4.6); Lymphocytes % 39.2 %; Mean Corpuscular HGB Conc 34.5 g/dL (31.6-35.5); Mean Corpuscular Volume 101.4 fL (83.0-100.0); Mean Platelet Volume 10.1 fL (9.4-12.4); Monocytes # 0.5 K/mcL (0.0-1.3); Monocytes % 5.9 %; Neutrophils # 4.3 K/mcL (1.6-8.9); Platelet Count 112 K/mcL (140-400); Red Cell Distribution Width 14.2 % (11.5-14.5); Segmented Neutrophils % 50.7 %
[2017-12-25 05:48] LABS: BUN/Creatinine Ratio 41 (6-26); Blood Urea Nitrogen 45 mg/dL (6-20); Calcium 8.5 mg/dL (8.6-10.3); Carbon Dioxide 27 mEq/L (23-29); Chloride 106 mEq/L (98-107); Glucose 108 mg/dL (70-105); Osmolality,Calculated 296 (280-300); Potassium 3.9 mEq/L (3.5-5.1); Sodium 137 mEq/L (136-145); eGFR For Non-African Americans > 60 (> 60)
[2017-12-25] MEDS: 0.9 % Sodium Chloride 1,000 ML IVC SCH ×3 (06:34→23:25)
--- NOTE | 2017-12-25 08:40 | Anesthesia Evaluation PreOp ---
Date of Encounter: 12/25/17 Time of Encounter: 11:52 - Past History Planned Operation: EGD Cardiac History: Denies any Significant Hx, HTN Pulmonary History: Smoker SECTION REPAIRER History: Denies Any Significant HX Other Medical History: Other (GI bleed) Anesthesia History: No Prior Anesthetic Complications, Past Anesthesia (Knee scope, colonoscopy) Alcohol Use: heavy (admits to 5 beers/day) Drug use: marijuana Medications and Allergies Baclofen [Lioresal] 10 mg PO TID 12/24/17 [History] Buprenorphine [Butrans] 10 mcg TD QWEEK 12/24/17 [History] Cholecalciferol (D-3) [Vitamin D] 1,000 unit PO DAILY 12/24/17 [History] DULoxetine [Cymbalta] 60 mg PO DAILY 12/24/17 [History] Diclofenac Sodium [Voltaren] 2 gm TP QID 12/24/17 [History] Folic Acid 1 mg PO DAILY 12/24/17 [History] Gabapentin [Neurontin] 300 mg PO TID 12/24/17 [History] Lisinopril-HCTZ 20-12.5 [Prinzide 20-12.5] 2 tab PO DAILY 12/24/17 [History] Melatonin [Melatin] 3 mg PO HS 12/24/17 [History] Multivit-Min/FA/Lycopen/Lutein [A Thru Z Select Multivit Tab] 1 tab PO DAILY [History] Naproxen [Naprosyn] 500 mg PO BID 12/24/17 [History] [place]-3/Dha/Epa/Fish Oil [Fish Oil 1,000 mg Softgel] 1 cap PO BID 12/24/17 [ History] Sennosides [Senna] 17.2 mg PO DAILY PRN 12/24/17 [History] Sildenafil Citrate [Viagra] 50 mg PO DAILY PRN 12/24/17 [History] Tramadol HCl [Ultram] 50 mg PO TID PRN 12/24/17 [History] Trazodone HCl 100 mg PO HS 12/24/17 [History] 3 Allergy/AdvReac Type Severity Reaction Status Date / Time No Known Allergies Allergy Verified 06/29/16 01:59 - Meds/Allergy Pre-op Review Medications Reviewed: Yes Allergies Reviewed: Yes Beta Blockers on Current Med List: No Anesthesia Results - Labs 12/25/17 04:51 12/25/17 04:51 Anesthesia Exam Vital Signs/O2 Sat, Most Current Temp Pulse Resp BP Pulse Ox 99 F 74 16 116/65 99 12/25/17 10:54 12/25/17 10:54 12/25/17 10:54 12/25/17 10:54 12/25/17 10:54 NPO (# of Hours): > 8 hrs Pain Scale: 0 Pain Scale Used: Numeric (1 - 10) - HEENT Pupil (Motor): Pupils equal, EOMI Mallampati: III Teeth: Normal Oral Opening: Greater than 3 - SECTION REPAIRER LOC: Oriented SECTION REPAIRER Motor: Normal RUE, Normal LUE, Normal RLE, Normal LLE, Normal Face SECTION REPAIRER Sensory: Normal: RUE, LUE, RLE, LLE, Face - Cardiac Rhythm: Regular Murmur: None JVD: No Carotid Bruit: No - Pulmonary Breath Sounds: bilateral Clear Respiratory Effort: Symmetrical Anesthesia Assess/Plan ASA Score: 3 Modified [place] Scale for Level of Consciousness: Cooperative, oriented, and tranquil Anesthetic Plan: General Autologous Blood: Yes Monitoring Plan: Standard Monitors Recovery Plan: PACU
[2017-12-25] MEDS ORDERED: Lidocaine -MPF 2% 2 ML VIAL ONE (08:55)
[2017-12-25] MEDS ORDERED: Lidocaine -MPF 4% 5 ML AMPUL ONE (08:55)
[2017-12-25] MEDS ORDERED: Dexamethasone 4 MG/ML VIAL ONE (08:55)
[2017-12-25] MEDS ORDERED: Ondansetron 4 MG/2 ML VIAL ONE (08:55)
[2017-12-25] MEDS ORDERED: *HR* FentaNYL (PF) 100 MCG/2 ML VIAL ONE (08:55)
[2017-12-25] MEDS ORDERED: *HR* Succinylcholine 200 MG/10 ML VIAL IVP ONE (08:55)
[2017-12-25] MEDS ORDERED: *HR* Propofol 200 MG/20 ML VIAL IVP ONE (08:56)
[2017-12-25] MEDS ORDERED: Ketamine *HR* 500 MG/10 ML MDV ONE (08:59)
[2017-12-25] MEDS ORDERED: *HR* PHENYLEPHRINE 1,000 MCG/10 ML SYRINGE IVP ONE (08:59)
[2017-12-25] MEDS ORDERED: Lisinopril-HCTZ 20-12.5mg TABLET PO SCH (09:00)
[2017-12-25] MEDS ORDERED: Cholecalciferol (D-3) 1,000 UNIT TABLET PO SCH (09:00)
[2017-12-25] MEDS ORDERED: *HR* Midazolam HCl 2 MG/2 ML VIAL ONE (10:46)
[2017-12-25] MEDS ORDERED: *HR* OxyCODONE/APAP 5/325 TABLET PO PRN (12:23)
[2017-12-25] MEDS ORDERED: *HR* Promethazine 25 MG/ML VIAL IVP PRN (12:23)
--- NOTE | 2017-12-25 12:24 | Event Note ---
Date of Encounter: 12/25/17 Time of Encounter: 12:22 EGD performed. Noted irregular Z line-biopsied. NO abnormality in the stomach. Noted superficial, linear ulcers in the duodenal bulb. Biopsied. Recommend continue with Protonix and carafate. Biopsies pending. OK to start full liquids and advance diet as tolerated. Will make certain patient has a outpatient follow up appointment with us. Will sign off; thank you.
--- NOTE | 2017-12-25 13:02 | Anesthesia Evaluation Post Op ---
Date of Encounter: 12/25/17 Time of Encounter: 13:01 - Vital Signs Vital Signs: Vital Signs Temperature 98.8 F 12/24/17 11:19 Pulse Rate 88 12/24/17 11:19 Respiratory Rate 15 12/24/17 11:19 Blood Pressure 148/75 12/24/17 11:19 O2 Sat by Pulse Oximetry 100 12/24/17 11:19 Temperature 98.3 F 12/25/17 12:28 Pulse Rate 78 12/25/17 12:48 Respiratory Rate 16 12/25/17 12:48 Blood Pressure 133/74 12/25/17 12:48 O2 Sat by Pulse Oximetry 97 12/25/17 12:48 Oxygen Delivery Oxygen Delivery Room Air - Lungs Lungs: Clear Ascult./Percussion - Airway Airway: Non-obstructed - Cardiovascular Regular Rate - Mental Status Mental Status: Alert & Oriented, Answers Appropriately - Pain Pain Scale: 1 Pain Scale used: Numeric (1 - 10) - Nausea Vomiting Nausea Vomiting: Not Present - Hydration Hydration: Tolerates oral liquids - Discharge PostOp Status: Transfer Patient to floor
[2017-12-25] MEDS ORDERED: traMADol 50 MG TABLET PO PRN (13:06)
[2017-12-25] MEDS ORDERED: Naloxone 0.4 MG/ML INJ IVP PRN (13:06)
[2017-12-25] MEDS ORDERED: *HR* LORazepam 2 MG/ML VIAL IVP PRN ×3 (13:06)
[2017-12-25] MEDS: Gabapentin 300 MG CAPSULE PO SCH ×2 (14:50→22:07)
[2017-12-25] MEDS: Baclofen 10 MG TABLET PO SCH ×2 (14:50→22:07)
--- NOTE | 2017-12-25 16:07 | Internal Med Progress Note ---
Hospitalist Progress Note - Encounter Date of Encounter: 12/25/17 Time of Encounter: 15:40 - Subjective Interval History: Has not had any bloody bowel movement overnight. Denies any abdominal pain or nausea. Saw him post EGD, no chest pain, shortness of breath, or lightheadedness. - Exam Vitals: Temp Pulse Resp BP Pulse Ox 97.8 F 80 16 130/79 92 12/25/17 12:58 12/25/17 12:58 12/25/17 12:58 12/25/17 12:58 12/25/17 12:58 Exam: General: Alert and oriented HEENT:EOM, pupils equal, round, and reactive. Cardiovascular:Normal S1 & S2, no murmurs or gallops. No JVD. Pulse regular. Lungs:Normal breath sounds, no wheezes or crackles. Abdomen:Soft, non-tender, no rigidity. Rest of the physical exam is non-contributory - Assessment and Plan (1) GI bleed Current Visit: Yes Status: Acute Assessment and Plan: Hemoglobin overnight dropped to 7.4 but this morning was back to 7.7. Underwent EGD today which showed irregular Z line at the GE junction and one nonbleeding linear and superficial duodenal ulcer with no stigmata of bleeding. Continue PPI and Carafate. Full liquid diet today and advance as tolerated. If he remains hemodynamically stable with stable H&H, can be discharged home tomorrow and follow up with surgery to discuss the biopsy result. (2) HTN (hypertension) Current Visit: Yes Status: Acute Assessment and Plan: Continue home meds (3) Alcohol dependence Current Visit: Yes Status: Acute Assessment and Plan: Has not required any Ativan for EtOH withdrawal Discontinue CIWA protocol. DVT Prophylaxis: SCDs - Time Spent with Patient Total time spent is greater than 50% in coordination of care (as documented) at patient's floor/unit and/or counseling patient: Plan of Care Discussed with: patient Internal Medicine: Result - Labs CBC & Chem 7: 12/25/17 04:51 12/25/17 04:51 - ABG Interpretation ABG results: PT/INR, D-dimer PT 13.0 Seconds (9.4-12.1) H 12/24/17 11:50 - VTE Documentation of Mechanical Device: Venous foot pump, device Consult Discharge Plan - Plan [facility]errals: [facility] [Primary Care Provider] - (1) GI bleed Qualifiers: GI bleed type/associated pathology: unspecified gastrointestinal hemorrhage type Qualified Code(s): K92.2 - Gastrointestinal hemorrhage, unspecified (2) HTN (hypertension) Qualifiers: Hypertension type: essential hypertension Qualified Code(s): I10 - Essential (primary) hypertension (3) Alcohol dependence Qualifiers: Substance use status: unspecified alcohol-induced disorder Qualified Code(s) : F10.29 - Alcohol dependence with unspecified alcohol-induced disorder
[2017-12-25] MEDS ORDERED: Sucralfate 1 GM TABLET PO SCH (16:30)
--- NOTE | 2017-12-25 17:23 | Electrocardiograph Report ---
[place] [id number] Test Date: 2017-12-24 Pat Name: Cory Santamaria Department: 103 Room: [facility] Gender: M Photo Printer: SHAMIKA : [id number] Requested By: Jagdish Claire Order Number: [id number] Reading MD: Jerrica Velazquez Measurements Intervals [place] Rate: 87 P: 51 CT: 136 QRS: 41 QRSD: 89 T: 37 QT: 375 QTc: 420 Interpretive Statements SINUS RHYTHM Electronically Signed On 12-25-2017 17:21:20 EDT by Jerrica Velazquez
[2017-12-25] MEDS ORDERED: Thiamine (B-1) 100 MG, Folic Acid 1 MG, MVI, adult with vitamin K 10 ML in 0.9 % Sodi... IVPB SCH (18:00)
[2017-12-25] MEDS ORDERED: Melatonin 3 MG TABLET PO SCH (21:00)
[2017-12-25] MEDS ORDERED: Patient Taking Own Medication 1 EACH PO SCH (21:00)
[2017-12-25] MEDS ORDERED: traZODone 50 MG TABLET PO SCH (21:00)
[2017-12-26 04:48] LABS: Hematocrit 23.8 % (37.5-50.1); Hemoglobin 7.3 g/dL (12.9-16.9)
[2017-12-26 05:10] LABS: BUN/Creatinine Ratio 21 (6-26); Blood Urea Nitrogen 20 mg/dL (6-20); Calcium 8.4 mg/dL (8.6-10.3); Carbon Dioxide 25 mEq/L (23-29); Chloride 107 mEq/L (98-107); Glucose 115 mg/dL (70-105); Osmolality,Calculated 288 (280-300); Potassium 3.9 mEq/L (3.5-5.1); Sodium 137 mEq/L (136-145); eGFR For Non-African Americans > 60 (> 60)
[2017-12-26] MEDS: Baclofen 10 MG TABLET PO SCH ×2 (08:43→13:18)
[2017-12-26] MEDS: Gabapentin 300 MG CAPSULE PO SCH ×2 (08:44→13:18)
[2017-12-26] MEDS ORDERED: Lisinopril-HCTZ 20-12.5mg TABLET PO SCH (09:00)
[2017-12-26] MEDS ORDERED: Cholecalciferol (D-3) 1,000 UNIT TABLET PO SCH (09:00)
[2017-12-26 11:35] VITALS: BP 142/73
--- NOTE | 2017-12-26 13:30 | Discharge Summary ---
<Aaliyah Waters M - Last Filed: 12/26/17 16:13> Orders not resulted at time of discharge: Pending orders 12/25/17 12:18 Surgical Pathology [PTH] Routine Date of Encounter: 12/26/17 Time of Encounter: 16:14 Hospital course: Mr. Santamaria is a 57 year old male with history of EtOH abuse and HTN presented with hematochezia, melena and hematemesis. He complained of fatigue and abdominal pain. Patient was given IVF and made NPO. CT abdomen revealed nonspecific duodenitis with reactive upper abdominal lymph nodes. Surgery was consulted and EGD showed irregular Z line at GE junction and one superficial linear ulcer at the duodenal bulb. Per Surger[facility] recommendations treated with Protonix, Carafate and diet advanced as tolerated. At discharge, the patient was considered hemodynamically stable despite the low Hgb as it continued to trend around 7.3 for three days. He denied any new episodes of hematochezia or hematemesis with a normal bowel movement without melena. Additionally, the patient denies abdominal pain or nausea, denies chest pain, SOB, and lightheadedness. Patient was discharged with discontinuation of his scheduled naproxen and new scripts for PPI and Carafate. He was strictly instructed to follow up with PCP for new HgB and Hct in the next week. Surgery also request follow up outpatient appointment. Discharge discussed with: patient Time spent discussing smoking cessation with patient: more than 10 minutes - Time Spent with Patient Total time spent providing and/or coordinating discharge services: Greater than 30 minutes - Discharge Medications Prescriptions: Omeprazole [PriLOSEC] 40 mg PO BID #14 cap Sucralfate [Carafate] 1 gm PO QIDAC #56 tablet Home Medications: Baclofen [Lioresal] 10 mg PO TID 12/24/17 [History] Buprenorphine [Butrans] 10 mcg TD QWEEK 12/24/17 [History] Cholecalciferol (D-3) [Vitamin D] 1,000 unit PO DAILY 12/24/17 [History] DULoxetine [Cymbalta] 60 mg PO DAILY 12/24/17 [History] Diclofenac Sodium [Voltaren] 2 gm TP QID 12/24/17 [History] Folic Acid 1 mg PO DAILY 12/24/17 [History] Gabapentin [Neurontin] 300 mg PO TID 12/24/17 [History] Lisinopril-HCTZ 20-12.5 [Prinzide 20-12.5] 2 tab PO DAILY 12/24/17 [History] Melatonin [Melatin] 3 mg PO HS 12/24/17 [History] Multivit-Min/FA/Lycopen/Lutein [A Thru Z [employer] Multivit Tab] 1 tab PO DAILY [History] [place]-3/Dha/Epa/Fish Oil [Fish Oil 1,000 mg Softgel] 1 cap PO BID 12/24/17 [ History] Sennosides [Senna] 17.2 mg PO DAILY PRN 12/24/17 [History] Sildenafil Citrate [Viagra] 50 mg PO DAILY PRN 12/24/17 [History] Tramadol HCl [Ultram] 50 mg PO TID PRN 12/24/17 [History] Trazodone HCl 100 mg PO HS 12/24/17 [History] Omeprazole [PriLOSEC] 40 mg PO BID #14 cap 12/26/17 [Rx] Sucralfate [Carafate] 1 gm PO QIDAC #56 tablet 12/26/17 [Rx] Allergies/Adverse Reactions: 3 Allergy/AdvReac Type Severity Reaction Status Date / Time No Known Allergies Allergy Verified 06/29/16 01:59 Date of admission: 12/25/17 11:21 [facility] care physician: [facility] - Constitutional Vitals: Temp Pulse Resp BP Pulse Ox 98 F 83 16 142/73 96 12/26/17 11:33 12/26/17 11:33 12/26/17 11:33 12/26/17 11:33 12/26/17 11:33 General appearance: Present: A&O X 3, answers questions appropriately - Respiratory Respiratory exam: Present: CTAB. Absent: rales, respiratory distress, stridor, wheezes - Cardiovascular Cardiovascular exam: Present: RRR. Absent: gallop, rubs - GI/Abdominal GI/Abdominal exam: Present: normal bowel sounds, soft. Absent: mass, tenderness - Patient Status Disposition: Home, Self-Care Condition: Good Functional capacity at discharge: independent ambulation Overall status at discharge: patient is progressing back to baseline - Discharge Instructions Instructions: Sucralfate (By mouth), Pantoprazole (By mouth), Gastritis (DC), Alcohol Intoxication (DC), Abuse of Alcohol (DC), Upper Gastrointestinal Endoscopy (DC), Acute Nausea and Vomiting (DC), Chronic Hypertension (DC) Follow [facility]: [facility] [Primary Care Provider[facility] - 01/05/18 8:45 am - [facility] Documentation of Mechanical Device: Venous foot pump, device <Nia Hopper - Last Filed: 12/26/17 17:19> Date of Encounter: 12/26/17 - Discharge Diagnosis (1) GI bleed Priority: Primary Status: Acute Qualifiers: GI bleed type/associated pathology: unspecified gastrointestinal hemorrhage type Qualified Code(s): K92.2 - Gastrointestinal hemorrhage, unspecified (2) Alcohol dependence Priority: Secondary Status: Acute Qualifiers: Substance use status: unspecified alcohol-induced disorder Qualified Code(s ): F10.29 - Alcohol dependence with unspecified alcohol-induced disorder (3) HTN (hypertension) Priority: Secondary Status: Acute Qualifiers: Hypertension type: essential hypertension Qualified Code(s): I10 - Essential (primary) hypertension Hospital course: Mr. Santamaria is a 57 year old male - Time Spent with Patient Total time spent providing and/or coordinating discharge services: Date of admission: 12/25/17 11:21 Primary care physician: PCP [facility] - Constitutional Vitals: Temp Pulse Resp BP Pulse Ox 98 F 83 16 142/73 96 12/26/17 11:33 12/26/17 11:33 12/26/17 11:33 12/26/17 11:33 12/26/17 11:33 - Attending Attestation I have seen and examined this patient independently. I have discussed with resident physician Dr Waters regarding discharge and follow-up plan. Agree with the documentation.
== END 2017-12-26 16:04 | disposition home or self-care (01) | DRG 379 ==
LOC: EMEROO 11:14 → INTOOBSV 14:18 → 2NENU 14:18
PROVIDERS: ADMIT Internal Medicine; ATTEND Internal Medicine
PROC: ENDOEBX (2017-12-25 17:30)

== ENCOUNTER 2020-03-30 19:06 | Inpatient (IN) ==
[2020-03-30] MEDS ORDERED: Isovue-370 500 ML BOTTLE IVP ONE (20:03)
[2020-03-30] MEDS ORDERED: *HR* FentaNYL (PF) 100 MCG/2 ML VIAL IVP ONE (20:23)
[2020-03-30] MEDS ORDERED: Naloxone 0.4 MG/ML INJ IVP PRN (21:14)
[2020-03-30] MEDS ORDERED: *HR* LORazepam 2 MG/ML VIAL IVP PRN ×3 (22:13)
[2020-03-30] MEDS ORDERED: Ondansetron 4 MG/2 ML VIAL IVP PRN (22:14)
[2020-03-30] MEDS: 0.9 % Sodium Chloride 1,000 ML IVC SCH (22:17)
[2020-03-31] MEDS: Nicotine 21 MG PATCH.TD24 TD SCH ×2 (03:07→08:23)
[2020-03-31 04:41] LABS: Basophils % 0.4 %; Eosinophils # 0.1 K/mcL (0.0-0.6); Hematocrit 40.9 % (37.5-50.1); Immature Granulocytes % 0.8 % (0-4); Lymphocytes # 1.2 K/mcL (0.6-4.6); Lymphocytes % 15.7 %; Mean Corpuscular HGB Conc 34.2 g/dL (31.6-35.5); Mean Corpuscular Hemoglobin 34.3 pg (28.0-33.3); Mean Corpuscular Volume 100.2 fL (83.0-100.0); Mean Platelet Volume 11.4 fL (9.4-12.4); Monocytes # 0.7 K/mcL (0.0-1.3); Monocytes % 8.5 %; Neutrophils # 5.7 K/mcL (1.6-8.9); Red Blood Count 4.08 M/mcL (4.19-5.50); Red Cell Distribution Width 13.2 % (11.5-14.5); Segmented Neutrophils % 73.6 %; White Blood Count 7.7 K/mcL (4.3-11.1)
[2020-03-31 04:42] LABS: Platelet Count 64 K/mcL (140-400)
[2020-03-31 04:51] LABS: INR 1.1; Prothrombin Time 12.8 Seconds (9.4-12.1)
[2020-03-31 04:56] LABS: Chol/HDL Ratio 2.1 (0-4.9)
[2020-03-31 04:58] LABS: Alanine Aminotransferase 64 Units/L (7-52); Albumin/Globulin Ratio 1.2 (1.1-2.2); Alkaline Phosphatase 63 Units/L (34-104); Aspartate Amino Transferase 66 Units/L (13-39); BUN/Creatinine Ratio 25 (6-26); Bilirubin,Total 1.4 mg/dL (0.3-1.0); Blood Urea Nitrogen 16 mg/dL (8-23); Calcium 9.2 mg/dL (8.6-10.3); Carbon Dioxide 22 mEq/L (23-29); Chloride 96 mEq/L (98-107); Globulin 3.3 g/dL (2.4-3.5); Glucose 103 mg/dL (70-105); Magnesium 1.6 mg/dL (1.6-2.6); Osmolality,Calculated 275 (280-300); Phosphorous 2.8 mg/dL (2.7-4.5); Potassium 3.3 mEq/L (3.5-5.1); Sodium 132 mEq/L (136-145); Total Protein 7.3 g/dL (6.4-8.9); Troponin I < 0.03 ng/mL (< 0.04); eGFR For African Americans > 60 (> 60); eGFR For Non-African Americans > 60 (> 60)
[2020-03-31] MEDS: *HR* Heparin 5,000 UNIT/ML VIAL SQ SCH ×2 (05:19→15:08)
[2020-03-31] MEDS: 0.9 % Sodium Chloride 1,000 ML IVC SCH (06:38)
[2020-03-31] MEDS ORDERED: Potassium Chloride 40 MEQ, Lidocaine 1% 2 ML in 0.9 % Sodium Chloride 500 ML IVPB ONE (08:10)
[2020-03-31] MEDS: Folic Acid 1 MG TABLET PO SCH (08:23)
[2020-03-31] MEDS: lisinopriL 20 MG TABLET PO SCH (14:27)
[2020-03-31] MEDS ORDERED: Thiamine (B-1) 100 MG, Folic Acid 1 MG, MVI, adult with vitamin K 10 ML in 0.9 % Sodi... IVPB SCH (23:00)
[2020-04-01 05:37] LABS: Red Cell Distribution Width 13.4 % (11.5-14.5)
[2020-04-01] MEDS: *HR* Heparin 5,000 UNIT/ML VIAL SQ SCH (05:37)
[2020-04-01 05:38] LABS: Hemoglobin 13.3 g/dL (12.9-16.9); Immature Platelets 10.8 % (1.1-6.1); Mean Corpuscular HGB Conc 34.1 g/dL (31.6-35.5); Mean Corpuscular Hemoglobin 34.5 pg (28.0-33.3); Mean Corpuscular Volume 101.3 fL (83.0-100.0); Mean Platelet Volume 10.6 fL (9.4-12.4); Red Blood Count 3.85 M/mcL (4.19-5.50); White Blood Count 6.3 K/mcL (4.3-11.1)
[2020-04-01 05:57] LABS: Alanine Aminotransferase 48 Units/L (7-52); Albumin 3.6 g/dL (3.5-5.7); Albumin/Globulin Ratio 1.1 (1.1-2.2); Alkaline Phosphatase 56 Units/L (34-104); Aspartate Amino Transferase 45 Units/L (13-39); BUN/Creatinine Ratio 25 (6-26); Bilirubin,Total 1.5 mg/dL (0.3-1.0); Blood Urea Nitrogen 15 mg/dL (8-23); Carbon Dioxide 23 mEq/L (23-29); Chloride 100 mEq/L (98-107); Globulin 3.2 g/dL (2.4-3.5); Glucose 94 mg/dL (70-105); Lipase 101 Units/L (11-82); Osmolality,Calculated 277 (280-300); Potassium 3.4 mEq/L (3.5-5.1); Sodium 133 mEq/L (136-145); Total Protein 6.8 g/dL (6.4-8.9); eGFR For African Americans > 60 (> 60); eGFR For Non-African Americans > 60 (> 60)
[2020-04-01] MEDS ORDERED: 0.9 % Sodium Chloride 1,000 ML IVC SCH (08:00)
[2020-04-01] MEDS: lisinopriL 20 MG TABLET PO SCH (08:29)
[2020-04-01] MEDS: Folic Acid 1 MG TABLET PO SCH (08:29)
[2020-04-01] MEDS: Nicotine 21 MG PATCH.TD24 TD SCH (08:30)
[2020-04-01 10:08] VITALS: BP 165/86
[2020-04-01 14:48] LABS: BUN/Creatinine Ratio 26 (6-26); Blood Urea Nitrogen 16 mg/dL (8-23); Calcium 9.4 mg/dL (8.6-10.3); Carbon Dioxide 23 mEq/L (23-29); Chloride 99 mEq/L (98-107); Glucose 107 mg/dL (70-105); Osmolality,Calculated 276 (280-300); Potassium 3.9 mEq/L (3.5-5.1); Sodium 132 mEq/L (136-145); eGFR For African Americans > 60 (> 60); eGFR For Non-African Americans > 60 (> 60)
== END 2020-04-01 17:17 | disposition home or self-care (01) | DRG 440 ==
LOC: EMEROOARM 19:06 → 3BNU 19:06
PROVIDERS: ADMIT Internal Medicine; ATTEND Internal Medicine

== ENCOUNTER 2020-08-09 12:13 | Observation (INO) ==
[2020-08-09] MEDS ORDERED: Ondansetron 4 MG/2 ML VIAL IVP PRN (13:38)
[2020-08-09] MEDS ORDERED: Naloxone 0.4 MG/ML INJ IVP PRN (13:38)
[2020-08-09] MEDS: Folic Acid 1 MG TABLET PO SCH (14:39)
[2020-08-09] MEDS: Thiamine (B-1) 100 MG TABLET PO SCH (14:39)
[2020-08-09] MEDS: *HR* Heparin 5,000 UNIT/ML VIAL SQ SCH ×2 (14:39→21:46)
[2020-08-09] MEDS: Nicotine 14 MG PATCH.TD24 TD SCH (14:40)
[2020-08-09] MEDS: Ringers Solution, Lactated 1,000 ML IVC SCH (18:21)
[2020-08-10 02:28] LABS: Eosinophils % 4.1 %; Immature Granulocytes % 0.6 % (0-4)
[2020-08-10 02:30] LABS: Basophils # 0.1 K/mcL (0.0-0.2); Eosinophils # 0.3 K/mcL (0.0-0.6); Hematocrit 35.9 % (37.5-50.1); Hemoglobin 12.7 g/dL (12.9-16.9); Immature Platelets 7.6 % (1.1-6.1); Lymphocytes # 2.2 K/mcL (0.6-4.6); Mean Corpuscular HGB Conc 35.4 g/dL (31.6-35.5); Mean Corpuscular Hemoglobin 35.8 pg (28.0-33.3); Mean Corpuscular Volume 101.1 fL (83.0-100.0); Mean Platelet Volume 10.5 fL (9.4-12.4); Monocytes # 0.8 K/mcL (0.0-1.3); Monocytes % 10.4 %; Neutrophils # 3.9 K/mcL (1.6-8.9); Platelet Count 95 K/mcL (140-400); Red Blood Count 3.55 M/mcL (4.19-5.50); Red Cell Distribution Width 14.1 % (11.5-14.5); Segmented Neutrophils % 53.9 %; White Blood Count 7.2 K/mcL (4.3-11.1)
[2020-08-10 02:53] LABS: Alanine Aminotransferase 34 Units/L (7-52); Albumin 3.5 g/dL (3.5-5.7); Albumin/Globulin Ratio 1.1 (1.1-2.2); Alkaline Phosphatase 69 Units/L (34-104); Aspartate Amino Transferase 48 Units/L (13-39); BUN/Creatinine Ratio 22 (6-26); Bilirubin,Total 1.6 mg/dL (0.3-1.0); Blood Urea Nitrogen 15 mg/dL (8-23); Calcium 8.8 mg/dL (8.6-10.3); Carbon Dioxide 28 mEq/L (23-29); Chloride 95 mEq/L (98-107); Globulin 3.1 g/dL (2.4-3.5); Glucose 89 mg/dL (70-105); Lipase 62 Units/L (11-82); Osmolality,Calculated 276 (280-300); Potassium 3.1 mEq/L (3.5-5.1); Sodium 133 mEq/L (136-145); Total Protein 6.6 g/dL (6.4-8.9); eGFR For African Americans > 60 (> 60); eGFR For Non-African Americans > 60 (> 60)
[2020-08-10] MEDS: *HR* Heparin 5,000 UNIT/ML VIAL SQ SCH (04:24)
[2020-08-10] MEDS: Ringers Solution, Lactated 1,000 ML IVC SCH (04:29)
[2020-08-10 06:53] VITALS: BP 167/93
[2020-08-10] MEDS ORDERED: Potassium Chloride 40 MEQ, Lidocaine 1% 2 ML in 0.9 % Sodium Chloride 500 ML IVPB ONE (07:59)
[2020-08-10] MEDS: Thiamine (B-1) 100 MG TABLET PO SCH (09:15)
[2020-08-10] MEDS: Nicotine 14 MG PATCH.TD24 TD SCH (09:15)
[2020-08-10] MEDS: Folic Acid 1 MG TABLET PO SCH (09:15)
[2020-08-10] MEDS ORDERED: Potassium Chloride Elixir 20 MEQ/15 ML UDC PO ONE (09:32)
== END 2020-08-10 09:49 | disposition home or self-care (01) ==
LOC: 3ANU → SUATTDRO 13:18
PROVIDERS: ADMIT Family Medicine; ATTEND Family Medicine

== ENCOUNTER 2020-12-22 12:46 | Inpatient (IN) ==
[2020-12-22] MEDS ORDERED: Melatonin 3 MG TABLET PO PRN (16:16)
[2020-12-22] MEDS ORDERED: Ondansetron 4 MG/2 ML VIAL IVP PRN (16:16)
[2020-12-22] MEDS ORDERED: Naloxone 0.4 MG/ML INJ IVP PRN (16:16)
[2020-12-22] MEDS: Folic Acid 1 MG TABLET PO SCH (16:42)
[2020-12-22] MEDS: Thiamine (B-1) 100 MG TABLET PO SCH (16:42)
[2020-12-22] MEDS: Vitamin B Complex/Vit C/Vit E 1 EACH TABLET PO SCH (16:42)
[2020-12-22] MEDS: Ringers Solution, Lactated 1,000 ML IVC SCH ×2 (16:43→20:00)
[2020-12-22] MEDS: Ketorolac 30 MG/ML VIAL IVP PRN (20:01)
[2020-12-22] MEDS ORDERED: Baclofen 10 MG TABLET PO SCH (21:00)
[2020-12-22] MEDS ORDERED: traZODone 50 MG TABLET PO SCH (21:00)
[2020-12-23] MEDS: Ringers Solution, Lactated 1,000 ML IVC SCH ×6 (00:51→23:20)
[2020-12-23 05:52] LABS: Alanine Aminotransferase 12 Units/L (7-52); Albumin 3.7 g/dL (3.5-5.7); Albumin/Globulin Ratio 1.2 (1.1-2.2); Alkaline Phosphatase 57 Units/L (34-104); Aspartate Amino Transferase 19 Units/L (13-39); BUN/Creatinine Ratio 15 (6-26); Bilirubin,Total 1.1 mg/dL (0.3-1.0); Blood Urea Nitrogen 11 mg/dL (8-23); Calcium 9.2 mg/dL (8.6-10.3); Carbon Dioxide 26 mEq/L (23-29); Chloride 99 mEq/L (98-107); Chol/HDL Ratio 2.2 (0-4.9); Cholesterol 177 mg/dL (< 200); Globulin 3.1 g/dL (2.4-3.5); Glucose 107 mg/dL (70-105); HDL Cholesterol 81 mg/dL (40-59); LDL Cholesterol,Calculated 78 mg/dL (< 100); Magnesium 1.4 mg/dL (1.6-2.6); Osmolality,Calculated 278 (280-300); Phosphorous 3.4 mg/dL (2.7-4.5); Potassium 3.9 mEq/L (3.5-5.1); Sodium 134 mEq/L (136-145); Total Protein 6.8 g/dL (6.4-8.9); Triglycerides 92 mg/dL (< 150); eGFR For African Americans > 60 (> 60); eGFR For Non-African Americans > 60 (> 60)
[2020-12-23] MEDS: Vitamin B Complex/Vit C/Vit E 1 EACH TABLET PO SCH (07:03)
[2020-12-23] MEDS: Ketorolac 30 MG/ML VIAL IVP PRN ×3 (07:03→23:27)
[2020-12-23] MEDS: Thiamine (B-1) 100 MG TABLET PO SCH (07:03)
[2020-12-23] MEDS: Folic Acid 1 MG TABLET PO SCH (07:03)
[2020-12-23] MEDS: *HR* Enoxaparin 40 MG/0.4 ML SYRINGE SQ SCH (07:04)
[2020-12-23] MEDS ORDERED: amLODIPine 5 MG TABLET PO SCH (09:00)
[2020-12-23] MEDS ORDERED: lisinopriL 20 MG TABLET PO SCH (09:00)
[2020-12-23] MEDS: Nicotine 14 MG PATCH.TD24 TD SCH (09:32)
[2020-12-23] MEDS ORDERED: amLODIPine 5 MG TABLET PO ONE (11:37)
[2020-12-23] MEDS ORDERED: Nicotine 2 MG GUM BC PRN (12:01)
[2020-12-23] MEDS: lisinopriL 10 MG TABLET PO SCH (12:13)
[2020-12-23] MEDS ORDERED: traZODone 50 MG TABLET PO ONE (23:37)
[2020-12-24] MEDS: *HR* Enoxaparin 40 MG/0.4 ML SYRINGE SQ SCH (05:30)
[2020-12-24 06:28] LABS: Alanine Aminotransferase 11 Units/L (7-52); Albumin 3.5 g/dL (3.5-5.7); Albumin/Globulin Ratio 1.2 (1.1-2.2); Alkaline Phosphatase 51 Units/L (34-104); Aspartate Amino Transferase 16 Units/L (13-39); BUN/Creatinine Ratio 15 (6-26); Bilirubin,Total 1.1 mg/dL (0.3-1.0); Blood Urea Nitrogen 13 mg/dL (8-23); Calcium 8.8 mg/dL (8.6-10.3); Carbon Dioxide 30 mEq/L (23-29); Chloride 97 mEq/L (98-107); Globulin 2.9 g/dL (2.4-3.5); Glucose 96 mg/dL (70-105); Osmolality,Calculated 278 (280-300); Potassium 3.9 mEq/L (3.5-5.1); Sodium 134 mEq/L (136-145); Total Protein 6.4 g/dL (6.4-8.9); eGFR For African Americans > 60 (> 60); eGFR For Non-African Americans > 60 (> 60)
[2020-12-24] MEDS: amLODIPine 5 MG TABLET PO SCH (08:33)
[2020-12-24] MEDS: Thiamine (B-1) 100 MG TABLET PO SCH (08:33)
[2020-12-24] MEDS: Folic Acid 1 MG TABLET PO SCH (08:33)
[2020-12-24] MEDS: Nicotine 14 MG PATCH.TD24 TD SCH (08:34)
[2020-12-24] MEDS: Ketorolac 30 MG/ML VIAL IVP PRN ×3 (08:34→22:23)
[2020-12-24] MEDS: Vitamin B Complex/Vit C/Vit E 1 EACH TABLET PO SCH (08:34)
[2020-12-24] MEDS: lisinopriL 10 MG TABLET PO SCH (08:34)
[2020-12-24] MEDS: Ringers Solution, Lactated 1,000 ML IVC SCH ×3 (08:43→19:39)
[2020-12-25] MEDS: Ringers Solution, Lactated 1,000 ML IVC SCH (02:28)
[2020-12-25 03:39] VITALS: O2SAT 96
[2020-12-25] MEDS: Ketorolac 30 MG/ML VIAL IVP PRN (04:12)
[2020-12-25 05:44] LABS: Alanine Aminotransferase 11 Units/L (7-52); Albumin 3.4 g/dL (3.5-5.7); Albumin/Globulin Ratio 1.1 (1.1-2.2); Alkaline Phosphatase 47 Units/L (34-104); Aspartate Amino Transferase 19 Units/L (13-39); BUN/Creatinine Ratio 24 (6-26); Bilirubin,Total 1.3 mg/dL (0.3-1.0); Blood Urea Nitrogen 16 mg/dL (8-23); Calcium 8.8 mg/dL (8.6-10.3); Carbon Dioxide 27 mEq/L (23-29); Chloride 100 mEq/L (98-107); Glucose 101 mg/dL (70-105); Osmolality,Calculated 279 (280-300); Potassium 3.7 mEq/L (3.5-5.1); Sodium 134 mEq/L (136-145); Total Protein 6.4 g/dL (6.4-8.9); eGFR For African Americans > 60 (> 60); eGFR For Non-African Americans > 60 (> 60)
[2020-12-25] MEDS: *HR* Enoxaparin 40 MG/0.4 ML SYRINGE SQ SCH (05:56)
[2020-12-25 07:21] VITALS: BP 176/73; PULSE 74; TEMP 97.5
[2020-12-25] MEDS: Vitamin B Complex/Vit C/Vit E 1 EACH TABLET PO SCH (08:36)
[2020-12-25] MEDS: lisinopriL 10 MG TABLET PO SCH (08:36)
[2020-12-25] MEDS: Thiamine (B-1) 100 MG TABLET PO SCH (08:36)
[2020-12-25] MEDS: amLODIPine 5 MG TABLET PO SCH (08:36)
[2020-12-25] MEDS: Nicotine 14 MG PATCH.TD24 TD SCH (08:36)
[2020-12-25] MEDS: Folic Acid 1 MG TABLET PO SCH (08:36)
== END 2020-12-25 10:50 | disposition home or self-care (01) | DRG 440 ==
LOC: 2ANU → SUATTDRO 14:03
PROVIDERS: ADMIT Internal Medicine; ATTEND Family Medicine